=== PATIENT | male | born 1970 | race Caucasian/White ===

== ENCOUNTER 2017-10-26 10:26 | Emergency (ER) | payer OTHER ==
[~2017-10-26] VITALS: Ht 180.3 cm; Wt 158.8 kg
[~2017-10-26 10:26] MED LIST: ACETAMINOPHEN/O1 TA2 PO; ALPRAZOLAM2 MG PO; AMPHETAMINE SAL30 MG PO; OXYCODONE HCL15 MG PO; VENLAFAXINE225 MG PO
[2017-10-26 10:46] VITALS: BP 124/74
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
[2017-10-26 11:35] LABS: ABSOLUTE BASOPHIL COUNT 0 /CUMM (0.0-0.2); ABSOLUTE EOSINOPHIL COUNT 0.3 /CUMM (0.0-0.7); ABSOLUTE GRANULOCYTE CT 2.6 /CUMM (1.4-6.5); ABSOLUTE LYMPH COUNT 1.4 /CUMM (1.2-3.4); ABSOLUTE MONOCYTE COUNT 0.5 /CUMM (0.10-0.60); BASOPHIL % 0.4 % (0.0-2.0); EOSINOPHIL % 6.8 % (0-5); GRANULOCYTE % 54.1 % (42.2-75.2); HEMATOCRIT 43.4 % (42-52); MEAN CORPUSCULAR HGB 31.4 PG (27.0-31.0); MEAN CORPUSCULAR HGB CONC 34.2 G/DL (33.0-37.0); MEAN CORPUSCULAR VOLUME 91.7 FL (80.0-94.0); MEAN PLATELET VOLUME 8.2 FL (7.4-10.4); PLATELET COUNT 185 /CUMM (130-400); RBC DISTRIBUTION WIDTH 12.6 % (11.5-14.5); RED BLOOD CELL CT 4.74 /CUMM (4.70-6.10); WHITE BLOOD CELL COUNT 4.8 /CUMM (4.8-10.8)
--- NOTE | 2017-10-26 12:19 | ULTRASOUND REPORT ---
EXAMINATION: US TRIPLEX LOWER EXTREMITY, RIGHT CLINICAL INFORMATION: Right lower extremity swelling. COMPARISON: None TECHNIQUE: Color-flow triplex imaging with spectral analysis and compression Doppler were performed on the lower extremity. FINDINGS: Respiratory variation, normal compression and augmented flow are noted throughout the lower extremity. The visualized common femoral vein, superficial femoral vein, profunda femoral vein, and popliteal vein show no evidence of deep venous thrombosis. Limited evaluation of the proximal calf veins secondary to patient body habitus. There is no Olivares's cyst. IMPRESSION: No evidence of deep venous thrombosis involving the lower extremity.
[2017-10-26] MEDS ORDERED: DEXTROAMP-AMPHE30 MG PO (12:25)
[2017-10-26] MEDS ORDERED: LOSARTAN-HCTZ1 EAC1 PO (12:26)
[2017-10-26] MEDS ORDERED: CITALOPRAM HBR20 MG PO (12:26)
[2017-10-26] MEDS ORDERED: OXYCODONE HCL15 M1 PO (12:26)
[2017-10-26] MEDS ORDERED: OXYCODONE-ACET1 EAC1 PO (12:26)
[2017-10-26] MEDS ORDERED: ALPRAZOLAM2 M2 PO (12:27)
== END 2017-10-26 12:40 ==
LOC: ERH 10:26
PROVIDERS: Physician Assistant Medical
DX: R60.9 Edema, unspecified (principal)